=== PATIENT | female | born 2000 | race Two or more races ===

== ENCOUNTER 2025-02-25 11:18 | Day surgery (SDC) | payer OTHER ==
[2025-02-19 12:04] LABS: URINE APPEARANCE Clear; URINE BILIRRUBIN Negative (NEGATIVE); URINE BLOOD Large; URINE COLOR Yellow; URINE GLUCOSE Negative (NEGATIVE); URINE KETONE Negative (NEGATIVE); URINE LEUKOCYTE Trace; URINE NITRATE Negative; URINE PROTEIN Negative (NEGATIVE); URINE UROBILINOGEN 0.2 E.U./dl
[2025-02-19 12:06] LABS: URINE BACTERIA 1467.5 uL (0.0-1933); URINE EPITHELIAL CELLS 44.1 uL (0.0-38.8); URINE RBC 779.3 uL (0.0-20.8); URINE WBC 23.1 uL (0.0-23.2)
[2025-02-19 12:25] LABS: HEMATOCRIT 38.6 % (36.0-45.00); HEMOGLOBIN 12.6 g/dL (12.0-15.00); MEAN CELL VOLUME 86.4 fL (80.00-100.00); MEAN CORPUSCULAR HEMOGLOBIN 28.2 pg (27.00-32.0); MEAN CORPUSCULAR HGB CONC 32.7 g/dl (32.0-36.0); PLATELET COUNT 233 K/uL (150-450); RED BLOOD COUNT 4.46 M/uL (4.00-6.00); RED CELL DISTRIBUTION WIDTH 13.6 % (11.5-14.5)
[2025-02-19 12:37] VITALS: BP 107/69
[2025-02-19 13:12] LABS: PARTIAL THROMBOPLASTIN TIME 24.2 SECONDS (22.0-34.0); PROTHROMBIN TIME 10.9 SECONDS (9.0-11.5)
[2025-02-19 13:40] LABS: ALBUMIN 3.6 gm/dL (3.4-5.0); BILIRUBIN TOTAL 0.64 mg/dL (0.3-1.2); CALCIUM 9.5 mg/dL (8.5-10.1); CREATININE SERUM 0.7 mg/dL (0.55-1.02); GFR 101.95; GLOBULINA 4.2 G/DL (2.4-3.5); POTASSIUM 4.32 mEq/L (3.5-5.1); T4 FREE 1.08 NG/ML (0.76-1.46); TOTAL PROTEIN 7.8 gm/dL (6.4-8.2); TSH 4.15 uIU/mL (0.358-3.74)
[~2025-02-25] VITALS: Ht 160 cm; Wt 154.7 kg
[~2025-02-25 11:18] MED LIST: SINGULAIR10 MG PO; SYNTHROID50 MCG PO; ZYRTEC10 M3 PO
[2025-02-25] MEDS ORDERED: CHLORHEXIDINE GLUCONATE 120 ML BOTTLE TOP ONE (15:10)
[2025-02-25] MEDS ORDERED: HEPARIN SODIUM,PORCINE 5,000 UNITS/ML VIAL SUBCUTANEO ONE (15:30)
[2025-02-25] MEDS ORDERED: CEFAZOLIN SODIUM 1,000 MG VIAL ONE (15:44)
[2025-02-25] MEDS ORDERED: HEMOSTATIC MATRIX 1 KIT KIT TOP ONE (16:12)
[2025-02-25] MEDS ORDERED: SURGIFLO APPLICATOR 1 EACH APPL TOP ONE (16:13)
[2025-02-25] MEDS ORDERED: SUGAMMADEX SODIUM 200 MG/2 ML VIAL IV ONE (16:39)
[2025-02-25] MEDS ORDERED: FAMOTIDINE/PF 20 MG/2 ML VIAL IV ONE (17:30)
[2025-02-25] MEDS ORDERED: MEPERIDINE HCL/PF 25 MG/ML VIAL IV PRN (17:30)
[2025-02-25] MEDS ORDERED: PROMETHAZINE HCL 25 MG/ML AMPUL IV PRN (17:30)
[2025-02-25] MEDS ORDERED: ONDANSETRON HCL 2 MG/ML VIAL IV PRN (17:30)
[2025-02-25] MEDS ORDERED: FAMOTIDINE/PF 20 MG/2 ML VIAL ONE (18:18)
== END 2025-02-25 20:10 | disposition home or self-care (01) ==
LOC: CIR.AMB 11:18
PROVIDERS: ATTEND General Practice
DX: D27.0 Benign neoplasm of right ovary (principal); N84.0 Polyp of corpus uteri; N93.8 Other specified abnormal uterine and vaginal bleeding; R10.2 Pelvic and perineal pain; E03.8 Other specified hypothyroidism; J45.909 Unspecified asthma, uncomplicated; Z88.6 Allergy status to analgesic agent